=== PATIENT | female | born 2000 | race Two or more races ===

== ENCOUNTER 2024-09-26 16:52 | Emergency (ER) | payer OTHER ==
[~2024-09-26] VITALS: Ht 165.1 cm; Wt 72.6 kg
[2024-09-26] MEDS ORDERED: KETOROLAC TROMETHAMINE 60 MG VIAL IM ONE ×2 (18:15→18:31)
[2024-09-26] MEDS ORDERED: CEFTRIAXONE SODIUM 1,000 MG VIAL IM ONE (18:15)
[2024-09-26] MEDS ORDERED: CEFTRIAXONE SODIUM 1,000 MG VIAL ONE (18:31)
== END 2024-09-26 21:04 | disposition home or self-care (01) ==
LOC: ER 20:00
DX: S93.499A Sprain of other ligament of unspecified ankle, initial encounter (principal); W19.XXXA Unspecified fall, initial encounter; Y93.89 Activity, other specified; Y92.89 Other specified places as the place of occurrence of the external cause; Y99.8 Other external cause status; H66.90 Otitis media, unspecified, unspecified ear; Z91.018 Allergy to other foods